=== PATIENT | female | born 1950 | race Caucasian/White ===

== ENCOUNTER 2019-04-16 15:08 | Emergency (ER) | payer OTHER, MEDICAID ==
[~2019-04-16] VITALS: Ht 170.2 cm; Wt 94.3 kg
[~2019-04-16 15:08] MED LIST: LISI-420 PO; TIOT18CA2 IH; [UNRECOGNIZED DRUG - CODE] PO
[2019-04-16 15:17] VITALS: BP 172/94
--- NOTE | 2019-04-16 15:22 | NUR ---
Patient ambulated to bed 5 with family. RN evaluating patient at bedside.
--- NOTE | 2019-04-16 15:41 | NUR ---
68F C/O BACK PAIN 10/10 AND SEVERE X3 DAY. DENIES N/V. PT STATES THE PAIN RADIATES FROM THE CENTER OF THE BACK TO THE FRONT OF HER ABDOMEN. DENIED TRAUMA. TOOK IBUPROFEN TO NO RELIEF. AGGRAVATED BY MOVEMENT. AMBULATORY. HX: HTN, DM, THYROID DISORDER, OSTEOPOROSIS RX: UNOBTAINABLE AT THIS TIME
--- NOTE | 2019-04-16 15:45 | NUR ---
DR DOMINGUEZ AT BEDSIDE EVALUATING PATIENT.
[2019-04-16] MEDS ORDERED: CYCLOBENZAPRINE 10 MG TAB PO ONE (15:50)
[2019-04-16] MEDS ORDERED: IBUPROFEN 600 MG TAB PO ONE (15:50)
--- NOTE | 2019-04-16 16:44 | NUR ---
PATIENT STATES BACK PAIN HAS DECREASED, RATED 6/10 NOW.
--- NOTE | 2019-04-16 17:00 | NUR ---
Patient discharged with v/s stable. Written and verbal after care instructions given and explained. Patient alert, oriented and verbalized understanding of instructions. Ambulatory with steady gait. All questions addressed prior to discharge. ID band removed. Patient advised to follow up with PMD. Rx of FLEXERIL AND IBUPROFEN given. Patient educated on indication of medication including possible reaction and side effects. Opportunity to ask questions provided and answered.
[2019-04-16 17:04] VITALS: BP 168/90
== END 2019-04-16 17:00 | disposition home or self-care (01) ==
LOC: MED 15:08
DX: S29.019A Strain of muscle and tendon of unspecified wall of thorax, initial encounter (principal); E11.9 Type 2 diabetes mellitus without complications; I10 Essential (primary) hypertension; E07.9 Disorder of thyroid, unspecified; Z79.899 Other long term (current) drug therapy; X58.XXXA Exposure to other specified factors, initial encounter; Y93.89 Activity, other specified; Y92.89 Other specified places as the place of occurrence of the external cause; Y99.8 Other external cause status
CPT/HCPCS: 99283

== ENCOUNTER 2023-05-27 05:50 | Emergency (ER) | payer OTHER ==
[~2023-05-27] VITALS: Ht 172.7 cm; Wt 90.7 kg
[~2023-05-27 05:50] MED LIST changes: -LISI-420 PO; +LISI-487 PO
[2023-05-27 06:03] VITALS: BP 105/67; PULSE 72; RESP 18; TEMP 96.9; O2SAT 97
[2023-05-27] MEDS ORDERED: KETOROLAC 15 MG/ML VIAL IVP ONE (06:35)
[2023-05-27] MEDS ORDERED: NACL 0.9% 1,000 ML IV ONE (06:35)
[2023-05-27 06:51] LABS: BASOPHILS # (AUTO) 0.1 K/uL (0.00-0.22); BASOPHILS % (AUTO) 0.4 % (0.0-2.0); EOSINOPHILS % (AUTO) 0.2 % (0.0-4.0); HEMATOCRIT 36.6 % (36-48); HEMOGLOBIN 12.2 g/dL (12.0-16.0); LYMPHOCYTES # (AUTO) 1.8 K/uL (2.5-16.5); LYMPHOCYTES % (AUTO) 13.3 % (20.5-51.1); MEAN CORPUSCULAR HEMOGLOBIN 28 pg (27-31); MEAN CORPUSCULAR HGB CONC 33 g/dL (33-37); MEAN CORPUSCULAR VOLUME 84.8 fL (80-94); MONOCYTES # (AUTO) 0.5 K/uL (0.8-1.0); MONOCYTES % (AUTO) 3.5 % (1.7-9.3); NEUTROPHILS # (AUTO) 11.4 K/uL (1.8-7.7); NEUTROPHILS % (AUTO) 82.6 % (42.2-75.2); PLATELET COUNT (AUTO) 280 K/uL (140-450); RED BLOOD CELL COUNT(AUTO) 4.31 MIL/uL (4.20-5.40); WHITE BLOOD COUNT (AUTO) 13.7 K/uL (4.8-10.8)
[2023-05-27 07:13] LABS: ALANINE AMINOTRANSFERASE 60 U/L (12-78); ALBUMIN 3.3 g/dL (3.4-5.0); ALKALINE PHOSPHATASE 70 U/L (50-136); ANION GAP 16.1 (8-16); ASPARTATE AMINOTRANSFERASE 73 U/L (15-37); CALCIUM 8.9 mg/dL (8.5-10.1); CARBON DIOXIDE 23.6 mmol/L (21-32); CHLORIDE 98 mmol/L (98-107); CREATININE 2.1 mg/dL (0.6-1.3); GLUCOSE 198 mg/dL (74-106); LIPASE 64 U/L (73-393); MAGNESIUM 1.6 mg/dL (1.8-2.4); PHOSPHORUS 5.1 mg/dL (2.5-4.9); POTASSIUM 4.7 mmol/L (3.5-5.1); SODIUM SERUM 133 mmol/L (136-145); TOTAL BILIRUBIN 0.6 mg/dL (0.0-1.0); TOTAL PROTEIN, SERUM 6.7 g/dL (6.4-8.2); UREA NITROGEN, BLOOD 29 mg/dL (7-18)
[2023-05-27] MEDS ORDERED: MAG SULF 2000 MG/WATER PREMIX 50 ML IV ONE (07:55)
[2023-05-27 09:10] VITALS: O2SAT 97
[2023-05-27 11:12] LABS: APPEARANCE,URINE CLEAR (CLEAR); BILIRUBIN,URINE NEGATIVE (NEGATIVE); BLOOD, URINE NEGATIVE (NEGATIVE); COLOR,URINE YELLOW (YELLOW); LEUKOCYTE ESTERASE ,URINE NEGATIVE (NEGATIVE); NITRITE, URINE NEGATIVE (NEGATIVE); PH,URINE 5.5 (5.0-9.0); PROTEIN,URINE NEGATIVE (NEGATIVE); UGLUCOSE NEGATIVE (NEGATIVE); UROBILINOGEN,URINE 0.2 EU/dL (0.2 - 1)
[2023-05-27] MEDS ORDERED: ACET-10509 PO (11:35)
[2023-05-27] MEDS ORDERED: ONDA-188 SL (11:35)
[2023-05-27 11:50] VITALS: BP 122/62; PULSE 87; RESP 16; TEMP 98; O2SAT 98
== END 2023-05-27 11:50 | disposition home or self-care (01) ==
LOC: MED 05:50
DX: E86.0 Dehydration (principal); R94.4 Abnormal results of kidney function studies; E11.9 Type 2 diabetes mellitus without complications; I10 Essential (primary) hypertension; R07.9 Chest pain, unspecified; R42 Dizziness and giddiness; M25.511 Pain in right shoulder; M25.512 Pain in left shoulder; M25.561 Pain in right knee; M25.562 Pain in left knee; R11.10 Vomiting, unspecified; R19.7 Diarrhea, unspecified; Z86.39 Personal history of other endocrine, nutritional and metabolic disease; Z98.890 Other specified postprocedural states; Z79.899 Other long term (current) drug therapy
CPT/HCPCS: 36415; 71045; 80053; 81003; 83690; 83735; 84100; 84484; 85025; 93005; 96361; 96365; 96366; 96375; 99285; J1885; J3475; J7030; Q0092